=== PATIENT | male | born 1995 | race African-American/Black ===

== ENCOUNTER 2017-04-23 07:27 | Emergency (ER) | payer SELFPAY ==
[2017-04-23 07:50] LABS: BASOPHILS % 0.4 (0.0-1.5); EOSINOPHILS % 0.6 % (0.0-6.8); MEAN CORPUSCULAR HEMOGLOBIN 31.4 pg (28.0-34.0); MEAN CORPUSCULAR VOLUME 92.9 fl (80.0-100.0); MONOCYTES % 2.5 % (0.0-11.0); NEUTROPHILS # 13.6 # k/uL (1.4-7.7)
[2017-04-23] MEDS: ONDANSETRON HCL/PF 4 MG/ 2ML VIAL IVP ONE (07:50)
[2017-04-23] MEDS: 0.9 % SODIUM CHLORIDE 1,000 ML IV ONE ×2 (07:50→08:35)
[2017-04-23 08:05] LABS: eGFR (African) > 60; eGFR (Non-African) > 60
[2017-04-23] MEDS: CIPROFLOXACIN HCL 500 MG TABLET PO ONE (08:40)
[2017-04-23] MEDS: 0.9 % SODIUM CHLORIDE 500 ML IV ONE (09:26)
[2017-04-23] MEDS ORDERED: 0.9 % SODIUM CHLORIDE 500 ML IV ONE (09:27)
--- NOTE | 2017-04-23 09:45 | ED Physician Documentation ---
General Adult - HISTORIAN Historian: patient - HPI Stated Complaint: N/V- Abdominal Pain Chief Complaint: General Adult Onset: hours Timing: still present Severity: moderate Further Comments: yes (Pt is a 21 yo male who has had numerous episodes n/v after eating a hamburger last evening. No diarrhea. No fever. No significant PMHx.) - ROS CONST: weakness, other (malaise) EYES/ENT: none CVS/RESP: none GI/: abdominal pain, vomiting, nausea MS/SKIN/LYMPH: none - PAST HX Past History: none Surgeries/Procedures: none Allergies/Adverse Reactions: Allergies Allergy/AdvReac Type Severity Reaction Status Date / Time No Known Allergies Allergy Unverified 04/23/17 07:44 Home Medications: Ambulatory Orders Medication Instructions Recorded NK [NK] 04/23/17 - SOCIAL HX Smoking History: non-smoker - FAMILY HX Family History: No - VITAL SIGNS Vital Signs: Vital Signs Temp Pulse Resp BP Pulse Ox 97 F L 68 20 115/68 98 04/23/17 07:30 04/23/17 07:30 04/23/17 07:30 04/23/17 07:30 04/23/17 07:30 - REVIEWED ASSESSMENTS Nursing Assessment Reviewed: Yes Vitals Reviewed: Yes Progress - Progress Progress: NS 1 L x 2 Ciprofloxacin 500 mg po x 1 NS 500 cc IVF Rocephin 1 gm IV Rx Cipro 500 mg po bid x 5 days. Rx Zofran 4 mg ODT po q 8 h prn. improved ED Results Lab/Radiology - Lab Results Lab Results: Lab Results 04/23/17 04/23/17 07:45 07:45 WBC 15.80 K/ul H K/ul (4.00-12.00) RBC 5.68 M/ul H M/ul (3.90-5.20) Hgb 17.8 g/dL g/dL (12.0-18.0) Hct 52.8 % % (37.0-53.0) MCV 92.9 fl fl (80.0-100.0) MCH 31.4 pg pg (28.0-34.0) MCHC 33.8 g/dL g/dL (30.0-36.0) RDW 13.0 % % (11.3-14.3) Plt Count 201 K/mm3 K/mm3 (130-400) Neut % (Auto) 86.2 % H % (39.0-79.0) Lymph % (Auto) 9.4 % L % (16.0-50.0) [place] % (Auto) 2.5 % % (0.0-11.0) Eos % (Auto) 0.6 % % (0.0-6.8) Baso % (Auto) 0.4 (0.0-1.5) Neut # (Auto) 13.6 # k/uL H # k/uL (1.4-7.7) Lymph # (Auto) 1.5 # k/uL # k/uL (0.6-4.0) [place] # (Auto) 0.4 # k/uL # k/uL (0.0-0.9) Eos # (Auto) 0.1 # k/uL # k/uL (0.0-0.6) Baso # (Auto) 0.1 # k/uL # k/uL (0.0-0.5) Reactive Lymphs % 0.8 % % (0.0-5.0) Reactive Lymphs # 0.1 # k/uL # k/uL (0.0-0.8) Sodium 139 mmol/L mmol/L (136-145) Potassium 4.1 mmol/L mmol/L (3.5-5.0) Chloride 101 mmol/L mmol/L (98-110) Carbon Dioxide 33 mmol/L H mmol/L (20-32) BUN 15 mg/dL mg/dL (10-26) Creatinine 1.0 mg/dL mg/dL (0.4-1.5) Estimated Creat Clear 99 Est GFR ( Amer) > 60 (60 - ) Est GFR (Non-Af Amer) > 60 (60 - ) Glucose 110 mg/dL H mg/dL (70-99) Calcium 10.5 mg/dL mg/dL (8.5-10.5) Total Bilirubin 1.2 mg/dL mg/dL (0.2-1.2) AST 34 U/L U/L (0-41) ALT 26 U/L U/L (0-45) Alkaline Phosphatase 55 U/L U/L (46-116) Total Protein 9.0 g/dL H g/dL (6.0-8.5) Albumin 5.1 g/dL g/dL (3.0-5.5) Amylase 53 U/L U/L (20-104) - Orders Orders: ED Orders Category Date Time Status Place IV Lock 1T Care 04/23/17 07:39 Completed AMYLASE Routine Lab 04/23/17 07:45 Completed CBC/PLATELET/DIFF Routine Lab 04/23/17 07:45 Completed CMP Routine Lab 04/23/17 07:45 Completed URINALYSIS Routine Lab 04/23/17 Ordered 0.9 % Sodium Chloride [Normal Saline] 1,000 ml Med 04/23/17 07:40 Discontinued IV Q1H 0.9 % Sodium Chloride [Normal Saline] 1,000 ml Med 04/23/17 08:34 Discontinued IV Q1H 0.9 % Sodium Chloride [Normal Saline] 500 ml Med 04/23/17 09:27 Discontinued IV .STK-MED 0.9 % Sodium Chloride [Normal Saline] 500 ml Med 04/23/17 09:26 Active IV NOW Ciprofloxacin HCl [Cipro] Med 04/23/17 08:35 Discontinued 500 mg PO NOW ONE Ondansetron HCl/Pf [Zofran 4 mg/2 ml] Med 04/23/17 07:39 Discontinued 4 mg IVP NOW ONE General Adult Physical Exam - PHYSICAL EXAM GENERAL APPEARANCE: moderate distress EENT: pharynx normal NECK: normal inspection, supple RESPIRATORY: no resp distress, chest non-tender, breath sounds normal CVS: reg rate & rhythm, heart sounds normal ABDOMEN: soft, normal bowel sounds, tenderness (moderate, diffuse abd pain). No : rebound BACK: normal inspection, no CVA tenderness SKIN: warm/dry, normal color EXTREMITIES: non-tender, normal range of motion, no evidence of injury NEURO: oriented X3, motor nml, sensation nml Discharge Clincal Impression: Nausea & vomiting Qualifiers: Vomiting type: unspecified Vomiting Intractability: non-intractable Qualified Code(s): R11.2 - Nausea with vomiting, unspecified Referrals: Chai Perez MD [Primary Care Provider] - Home Medications: Ambulatory Orders NK [NK] 04/23/17 Condition: Good Disposition: 01 HOME, SELF-CARE Decision to Admit: NO Decision Time: 09:50
[2017-04-23] MEDS: cefTRIAXone SODIUM 1 GM in 0.9 % SODIUM CHLORIDE 50 ML IV SCH (09:50)
[2017-04-23] MEDS ORDERED: cefTRIAXone SODIUM 1 GM VIAL ONE (09:58)
[2017-04-23] MEDS ORDERED: 0.9 % SODIUM CHLORIDE 50 ML IV ONE (09:59)
[2017-04-23 10:26] VITALS: BP 95/48
[2017-04-23 13:04] LABS: APPEARANCE,URINE CLEAR (CLEAR); COLOR,URINE YELLOW (YELLOW); OCCULT BLOOD,URINE NEGATIVE (NEGATIVE); PH URINE >=9.0 (5.0 - 8.0)
== END 2017-04-23 10:25 | disposition home or self-care (01) ==
LOC: ED 07:27
DX: R11.2 Nausea with vomiting, unspecified (principal)
CPT/HCPCS: 80053; 81002; 82150; 85025; J0696; J2405; J7030; J7060; 96361; 96374; 96375; 99283; S1016